=== PATIENT | female | born 1985 | race Caucasian/White ===

== ENCOUNTER 2017-01-02 07:40 | Day surgery (SDC) | payer OTHER ==
[2017-01-02] VITALS (15 sets, daily range): BP systolic 104–140; BP diastolic 54–90; PULSE 63–104; RESP 10–18; O2SAT 94–99
[~2017-01-02] VITALS: Ht 170.2 cm; Wt 55.8 kg
[~2017-01-02 07:40] MED LIST: ALPR0.5T PO; Clindamycin Inj 600 MG in IV Premix 1 EACH IV SCH; Lactated Ringer's 1,000 ML IV SCH; MIRT7.5T8 PO; VENL150C PO
[2017-01-02] MEDS ORDERED: Dexamethasone 4 mg/mL Inj ONE (07:41)
[2017-01-02] MEDS ORDERED: Rocuronium 10 mg/mL 5 mL Inj ONE (07:41)
[2017-01-02] MEDS ORDERED: Propofol 10,000 mCg/mL 20 mL Inj ONE (07:41)
[2017-01-02] MEDS ORDERED: fentaNYL-PF 50 mCg/mL 2 mL Inj ONE ×2 (07:41→14:52)
[2017-01-02] MEDS ORDERED: Neostigmine 1 mg/mL 10 mL Inj ONE (07:41)
[2017-01-02] MEDS ORDERED: Glycopyrrolate 0.2 MG/ML 1mL Inj ONE (07:41)
[2017-01-02] MEDS ORDERED: Ondansetron 2 mg/mL 2 mL Inj ONE (07:41)
[2017-01-02] MEDS ORDERED: Lidocaine PF 1% 30 mL Inj ONE (07:41)
[2017-01-02] MEDS ORDERED: Ketorolac 15 mg/mL Inj IVPUSH ONE (10:25)
[2017-01-02] MEDS ORDERED: HYDROcodone-APAP 5-325 mg Tablet PO PRN (10:25)
--- NOTE | 2017-01-02 10:31 | PCM.ORTHOP ---
Orthopedic Operative Report Date of Service: Jan 02, 2017 Pre Operative Diagnosis Left shoulder acromioclavicular joint arthritis Post Operative Diagnosis Same Procedure Left shoulder arthroscopy, distal clavicle excision Surgeon Surgeon: Aristeo Uribe MD Assistants:Paxton Chavez Indication for Procedure Left shoulder acromioclavicular joint arthritis Findings Severe acromioclavicular joint arthritis Details of Procedure RESEARCH GROUP DIRECTOR SURGEON: During the operation, the services of physician surgical training specialist were medically indicated and necessary to provide exposure of the operative site for the surgical procedure and to maintain the limb in a proper position to carry out the operation safely and efficiently. Without the qualified sales assistant being present, it would have extended the operative procedure and made the procedure technically more difficult to perform. INDICATIONS: The patient is a Jessica Crowe who is a 31-year-old female with pain with acromioclavicular joint arthritis refractory to steroid injection. The risks, benefits, and alternatives of surgery were discussed with the patient. The risks included but were not limited to infection, bleeding, damage to vessels and nerves, loss of motion, continued pain, complications due to anesthesia including myocardial infarction, stroke, , etc. The patient stated understanding of the nature of the surgical procedure and gave written and verbal consent to proceed. PROCEDURE: The patient was brought into the operating room and placed supine on the operating room table. A supraclavicular block was placed in the left shoulder for postoperative pain management, followed by the administration of general anesthesia. . The patient was then placed into the lateral decubitus position with the right side up. An axillary role was placed and the legs were padded as necessary to avoid pressure points. The patient was maintained in position with a beanbag evacuation device. A thorough examination of the left shoulder under anesthesia was performed. The patient had 150 degrees of forward elevation and 120 degrees of abduction. In 90 degrees of abduction there was 90 degrees of external rotation and 70 degrees of internal rotation. The shoulder was stable to load-shift testing. The left upper extremity was then prepped and draped in the usual fashion. The arm was suspended with a well-padded sleeve with eight/ten pounds of balanced suspension in the arthroscopic position. A standard posterior portal was made inferior and medial to the posterior corner of the acromion. The incision was made only through skin. The trocar was advanced through the soft tissue with a blunt-tipped obturator. This was inserted into the glenohumeral joint without difficulty. The 4 mm arthroscope was placed through the cannula and attached to the video monitor system. Inflow was achieved using the arthroscopic pump. The pressure was maintained at 35-40 mm of mercury throughout the entire procedure. Once the arthroscope confirmed visualization within the shoulder joint, it was advanced anteriorly into the rotator interval beneath the biceps tendon. A Wissinger walter was then used to create the anterior portal from inside-out. A second anterior stab wound incision was made only through skin and an anterior cannula was placed. A routine arthroscopic survey was begun. Survey: Anterior labral tear, intact rotator cuff, no biceps tendinitis The arm was then placed in the bursoscopy position. Norma procedure: Within the subacromial space there was no fraying on the undersurface of the coracoacromial ligament consistent with impingement. Next, the AC joint capsule was opened. There was inferior spurring as well as synovitis and arthritic changes at the AC joint and a decision was made to proceed with distal clavicle excision. Using a motorized bur working initially from posteriorly and then anteriorly, the outer 10 mm of the distal clavicle were excised. The arthroscope was then positioned anteriorly within the AC resection site confirming an excellent level of resection. The arm was placed through a range of motion and the rotator cuff and humeral head moved well as a unit. There was no further evidence of impingement. The subacromial space was irrigated with an additional liter of lactated Ringer s solution and excess fluid was drained. The arthroscopic portals were closed with #4-0 Nylon and Steri-Strips. A dry sterile dressing was applied, followed by a neutral rotation sling. The patient was awakened in the operating room and transported to the recovery room in satisfactory condition. The patient appeared to tolerate the procedure well. There were no complications noted. Nonweightbearing to affected upper extremity. Please leave sling on when you are in public, you may take off your sling at home and when asleep. You may remove sling 3 times a day to move the elbow wrist and fingers. You may start gentle ROM for your shoulder. Please keep the affected extremity elevated when possible. You may use ice and/or heat as needed for comfort. Follow-up in 2 weeks with me with 2-view xrays and for suture removal and Steri -Strip application, start physical therapy phase 1. Follow-up with me at 6 weeks, with progression of physical therapy as per my protocol (please ask me for protocol if needed). Follow-up with me before full release at 6-12 weeks postop. Grafts, Implants: None Complications There were no periprocedural complications identified. Condition Stable Anesthetic Administered: GA Catheters: None Output, Estimated Blood Loss: 5 Blood Admin during surgery: No Surgical Cast or Splint: Other Surgical Specimen Removed: No Specimen sent to Pathology: No copies to: Aristeo Uribe MD, Christopher L MD Jan 02, 2017 10:31
[2017-01-02] MEDS ORDERED: Lactated Ringer's 500 ML IV PRN (10:34)
[2017-01-02] MEDS ORDERED: Lactated Ringer's 1,000 ML IV SCH (10:34)
--- NOTE | 2017-01-02 10:34 | PCM.HPANE ---
Patient Data Date of Service: Jan 02, 2017 (1030) Surgeon Admitting Provider: Attending Provider:Aristeo Uribe MD Primary Care Physician:Genesis Cedeño MD Other Provider:Erasmo Durant Anesthesia Reason for Visit Left Ac Joint Arthritis Ht/WT & BMI Height (Feet): 5 Height (Inches): 7.00 Weight (Kilograms): 55.792 Body Mass Index 19.00 Allergies Coded Allergies: Penicillins (Verified Allergy, Severe, Rash,hives, 12/27/16) codeine (Verified Allergy, Severe, Rash, OK WITH MORPHINE, TROUBLE BREATHING, 12/27/16) iodine (Verified Allergy, Severe, Rash, 12/27/16) latex (Verified Allergy, Severe, Rash, 12/27/16) tramadol (Verified Allergy, Severe, Rash,diarrhea, 12/27/16) Past Anesthesia History Anesthesia History: Denies:: Abnormal Airway, Anesthesia Reactions, Difficult Intubation, Fam Anesthesia Reaction, Fam Malignant Hypertherm, Malignant Hyperthermia Diabetes History Hx Diabetes?: No MRSA MRSA: No Medications Home Meds Incl Beta Jesse: No Reported Medications Alprazolam (Xanax)0.5 Mg Tablet0.5 Mg PO TID PRN For Anxiety Ref 0 12/27/16 Mirtazapine 7.5 Mg Tablet7.5 Mg PO HS Ref 0 12/27/16 Venlafaxine ER (Effexor XR)150 Mg [id number] Mg PO DAILY Ref 0 12/27/16 Discontinued Reported Medications Hydrocod/APAP-Expunged, Do Not Renew! (VICODIN 5/500-Expunged Drug, Do Not Renew )1 Each Tablet1 Each PO 2D 01/09/13 Bupropion-Expunged Drug, Do Not Renew! 100 Mg Tablet1 Tab PO BID #60 TAB TAKE WITH FOOD 01/09/13 Sennosides/Docusate Sod-Expunged Drug, Do Not (Stool Softener-Expunged Drug, Do Not Renew!)1 Each Tablet1 Each PO DAILY 02/20/12 Vit/Fe Fumarate/Fa-Expunged Drug, Do (-Expunged Drug, Do Not Renew!)1 Tab Tablet1 Tab PO DAILY Ref 0 03/18/09 Discontinued Scripts Hydrocodone-Acetaminophen 5-325 mg 1 Each Tablet1 Tablet PO Q4H PRN For Pain # 20 TABLET Prov:Boerne,Ash O MD 05/20/16 Naproxen (Naprosyn)500 Mg [id number] Mg PO BID PRN For Pain #20 TABLET Ref 0 Prov:Aristeo Alvarez MD 04/02/16 Metronidazole (Flagyl)500 Mg [id number] Mg PO Q8H #20 TABLET Prov:Aristeo Alvarez MD 04/02/16 Doxycycline Hyclate 100 Mg [id number] Mg PO BID #20 TABLET Prov:Aristeo Alvarez MD 04/02/16 Hydrocodone-Acetaminophen 5-325 mg 1 Each Tablet1 Tablet PO QID PRN For Pain # 12 TABLET Ref 0 Prov:Aristeo Danielle 08/20/15 History History of ENT Problems?: Yes HEENT History: Positive for:: Sinus Problem (Hx of Sinusitis/ENVIRONMENTAL ALLERGIES) Denies:: Abnormal Airway Cataracts Difficult Intubation Dysphagia Hearing Problem Hx of Heart Problems?: No Cardiovascular History: Denies:: Cardiac Surgery Chest Pain Congestive Heart Failure Edema Heart Murmur Hypertension Irregular Heartbeat Pacemaker Thrombophlebitis Hx of Respiratory Problem?: No Respiratory History: Positive for:: Asthma (in winter, cold air) Denies:: COPD Chest Surgery (HX OF SMALL SPONTANEOUS PNEUMO 06/2014-RESOLVED W/O CT) Dyspnea (WALKER-SIMILAR SX 05/2016 W/ PNEUMO IN 2013, BUT CXR CLEAR) Emphysema Hemoptysis Pneumonia Tuberculosis Use of C-PAP Machine (SNORES) Hx Neurologic Problems?: Yes Neurological History: Positive for:: Headaches Seizures (fever-Induced, many years ago) Denies:: Alzheimer's Disease CVA Dementia Dizziness Parkinson's Disease Hx of GI Problems?: Yes Gastrointestinal History: Positive for:: Heartburn Denies:: Diverticulitis Gastroesphageal Reflux Gastrointestinal Bleeding Hepatitis Hiatal Hernia Rectal Bleeding Other GI Pertinent History: C/OF INTERMITTANT NAUSEA Hx of Problems?: Yes Genitourinary History: Positive for:: Urinary Tract Infection (HX OF W/ DYSURIA) Denies:: HX of Hemodialysis Kidney Stones HX of Peritoneal Dialysis: No Female Hx: Positive for:: Problems with Breasts? (inverted nipple on R) Denies:: Currently Endometriosis Pelvic Inflammatory Skin History: Denies:: History Skin Disorders? Pressure Ulcers Hx Musculoskeletal Problems?: Yes Musculoskeletal History: Positive for:: Back Injury (C/OF LUMBAR STRAIN) Musculoskeletal Trauma (HX FX LT ARM 1991, KNEE INJURY) Osteoarthritis (LT AC JOINT ARTHRITIS=CURRENT PROBLEM) Denies:: Joint Replacement Hx of Psycho/Social Problems?: Yes Psycho Social History: Positive for:: Anxiety Hx Depression Denies:: Bipolar Disorder Suicide Attempt Hx Surgeries?: Yes () Hx Any Other Health Problems?: Yes Other History: Denies:: Cancer Endocrine Disease Hospitalization Thyroid Disease History Blood Transfusions: Denies:: Blood Transfuse Reaction Blood Transfusions Hx Diabetes: No Hx Alcohol Use: NoHx Substance Use: No Smoking Status: Never Smoker Have You Smoked inLast 12 mo: No Stop/Bang S-Snoring: Do You Snore Loudly: Yes T-Tired: feel tired, fatigued: Yes O-Obsered: Observed not breath: No P-Blood Pressure: treated: No B- Body Mass Index > 35 kg/m2: No A- Age over 50: No N- Neck Large Circumference: No G- Gender Male: No LEAH Total Score: 2 LEAH Risk Assessment: Low Risk, <3 Yes Risk Assessment Category Category 1A: Patient has history of documented sleep apnea, and HAS NOT received any narcotic, sedative or anesthesia administration during this stay. Category 1B: Patient has history of documented sleep apnea, and HAS received any narcotic , sedative or anesthesia administration during this stay Category 2: Patient has SUSPECTED Obstructive Sleep Apnea, and HAS received any narcotic , sedative or anesthesia administration during this stay. Category 3: Patient has SUSPECTED Obstructive Sleep Apnea and HAS NOT received narcotic, sedative or anesthesia administration during this stay. Category 4: Outpatient in Procedural Areas with known sleep apnea or who screen positive for High Risk via the STOP/BANG questionnaire. Exam Exam Vital Signs Vital Signs Date Time Temp Pulse Resp B/P Pulse Ox O2 Delivery O2 Flow Rate FiO2 01/02/17 08:39 66 16 109/62 98 General Appearance: Alert, Oriented X3, Cooperative HEENT/AIRWAY: MP 2 Lungs: Clear to Auscultation Heart: Exam Unremarkable Plan Impression Patient chart reviewed, patient interviewed and anesthestic plan with risks, benefits, and alternatives discussed, and informed consent obtained. NPO Status: 01/01 at 1900 ASA Physical Status: ASA2 Mod Systemic Disease Anesthetic Plan: GA Bene/Risks/Altern/Consents: Yes HP Complete Prior to Induction: Yes Prakash Aparicio MD Jan 02, 2017 10:34
[2017-01-02] MEDS ORDERED: Ondansetron 2 mg/mL 2 mL Inj IVPUSH PRN (10:35)
[2017-01-02] MEDS ORDERED: EPHEDrine Sulfate 50 mg/mL Inj IVPUSH PRN (10:35)
[2017-01-02] MEDS ORDERED: Dexamethasone 4 mg/mL Inj IVPUSH PRN (10:35)
[2017-01-02] MEDS ORDERED: MetoCLOpramide 5 mg/mL 2 mL Inj IVPUSH PRN (10:35)
[2017-01-02] MEDS ORDERED: Phenylephrine 10,000 mCg/mL Inj IVPUSH PRN (10:35)
[2017-01-02] MEDS ORDERED: Ropivacaine-PF 0.5% 30 mL Inj INJ ONE (12:02)
--- NOTE | 2017-01-02 12:17 | PCM.ANEP1 ---
Post Anesthesia Phase 1 PACU Phase 1 Assessment Date of Service: Jan 02, 2017 (1030) Vital Signs 36.6, 125/77, 108, 10, 98% Vital Signs Date Time Temp Pulse Resp B/P Pulse Ox O2 Delivery O2 Flow Rate FiO2 01/02/17 08:39 66 16 109/62 98 Anesthetic Administered: GA OHARA's with Equal Strength: No Pain: No Nausea or Vomiting: No Oxygen Delivery: Room Air Lungs: Clear to Auscultation Dermatome Level: Full Sensation (BLOCK WORKING WELL) Summary UNEVENTFUL Prakash Dolan MD Jan 02, 2017 12:17
--- NOTE | 2017-01-02 12:17 | PCM.ANEP2 ---
Post Anesthesia Evaluation ASA/CMS Post Anesthesia VS in Patient's Normal Range?: Yes Resp Stable; Airway Patent?: Yes CV Function & Hydration Stable: Yes Mental Status Recovered?: Yes Pain control Satisfactory?: Yes N/V Control Satisfactory?: Yes Prakash Aparicio MD Jan 02, 2017 12:17
[2017-01-02] MEDS: fentaNYL-PF 50 mCg/mL 2 mL Inj IVPUSH PRN ×3 (12:31→14:58)
[2017-01-02] MEDS: HYDROmorphone 1 mg/mL Inj IVPUSH PRN ×3 (13:12→16:40)
== END 2017-01-02 23:59 | disposition home or self-care (01) ==
LOC: SAS 07:40
PROVIDERS: ATTEND Orthopaedic Surgery
DX: M19.012 Primary osteoarthritis, left shoulder (principal); J45.909 Unspecified asthma, uncomplicated; R51 Headache; R12 Heartburn; F41.9 Anxiety disorder, unspecified; Z79.899 Other long term (current) drug therapy

== ENCOUNTER 2017-02-04 07:40 | Emergency (ER) | payer OTHER ==
[~2017-02-04] VITALS: Ht 170.2 cm; Wt 55.9 kg
[~2017-02-04 07:40] MED LIST changes: -Clindamycin Inj 600 MG in IV Premix 1 EACH IV SCH; -Lactated Ringer's 1,000 ML IV SCH
[2017-02-04 07:47] VITALS: BP 131/54; PULSE 69; RESP 18; O2SAT 100
--- NOTE | 2017-02-04 07:56 | ED.REPORT ---
HPI-General Illness Date of Service February 04, 2017 ED Provider: Fanny Riddle MD The patient is a 31 year old female who presents to the ED due to left chest and shoulder pain radiating to the right shoulder and left arm onset yesterday. She had a left shoulder arthroscopy on 01/02/[address] Stroud. She denies any injury or muscle exacerbation to cause her symptoms. It has been 5 days since she stopped wearing her sling. She took 800mg Ibuprofen and 3 extra strength Tylenol with no relief. Nursing Notes Stated Complaint: SHOULDER/CHEST PAIN Chief Complaint: Extremity Trauma Nursing Notes Reviewed: Yes Allergies: Coded Allergies: Penicillins (Verified Allergy, Severe, Rash,hives, 12/27/16) codeine (Verified Allergy, Severe, Rash, OK WITH MORPHINE, TROUBLE BREATHING, 12/27/16) iodine (Verified Allergy, Severe, Rash, 12/27/16) latex (Verified Allergy, Severe, Rash, 12/27/16) tramadol (Verified Allergy, Severe, Rash,diarrhea, 12/27/16) ketorolac (Verified Allergy, Intermediate, Nausea,Vomiting,Diarrhea, ) Scheduled Mirtazapine (Mirtazapine) 7.5 Mg Tablet 7.5 MG PO HS Venlafaxine ER (Effexor XR) 150 Mg Capsule 150 MG PO DAILY Scheduled PRN Alprazolam (Xanax) 0.5 Mg Tablet 0.5 MG PO TID PRN PRN For Anxiety oxyCODONE-Acetaminophen 5-325 mg (oxyCODONE-Acetaminophen 5-325 mg) 1 Each Tablet 1-2 TAB PO Q6H PRN PRN For Pain General Time Seen by MD: 07:54 Chief Complaint Other (left shoulder pain) Hx Obtained From: Patient Arrived By: Walk-in Onset Occurred: Yesterday Symptom Duration: Since onset Location: : Chest: Shoulder left Quality: Painful Radiation: : Arm left Severity: Current: Moderate Recent Healthcare: Recent doctor visit, Previous surgery Similar Sx Previous: Yes Past Medical History Past Medical History Hypotension Spontaneous PTX 07/06 depression PTSD Past Surgical History Reports: Family History Noncontributory Smoking History Never Smoker Social History Alcohol Use: Denies alcohol use Drug Use: Denies drug use Other Social History: Good social support, , Lives with children, Local resident Ambulatory Status Wheelchair Review of Systems Full Review of Systems Cardiovascular: Reports: Chest pain Musculoskeletal: Reports: Joint pain (left shoulder ) Complete sys rev & neg: except as marked. Physical Exam Vital Signs Vital Signs Date Time Temp Pulse Resp B/P Pulse Ox O2 Delivery O2 Flow Rate FiO2 02/04/17 10:00 74 16 112/69 99 02/04/17 07:47 36.3 69 18 131/54 100 Room Air Initial VS: Reviewed Head / Eyes: Atraumatic, Normocephalic ENT: Mucous membranes moist Cardiovascular: Regular rate & rhythm, Heart sounds normal, Intact distal pulses Abdomen / GI: Soft, Non-tender, No guarding, No rebound, No distention Skin: Warm, Dry Neurologic: Alert, Oriented General/Constitutional: Awake, Alert, Cooperative Respiratory / Chest: Breath sounds = bilat On bedside ultrasound, pleural sliding easily seen in Right upper lobe but not definitive in left upper lobe Upper Extremities Upper Extremity / MS: Neurologic intact left shoulder tender at the acromial clavicular joint consistent with surgery significant trapezius spasm no warmth redness or sign of infection neuro intact along left arm Interpretation & Diagnostics ECG Interpretation Time: 08:47 Interpreted by: ED physician Normal ECG Interpretation: Normal ECG w/ rate of... (65) X-Ray Chest Interpretation Chest Xray Interpretation: IMPRESSION: 1. No acute cardiopulmonary disease. Dictated by: Mikael Valentine M.D. on 02/04/2017 at 8:50 Approved by: Mikael Valentine M.D. on 02/04/2017 at 8:52 View: Portable Interpretation / Wet Read by: Interpret - Radiologist Re-Eval/Medical Decision Time of Eval: 08:11 Re-Evaluation/Progress Note: US performed. Counseled Regarding: Diagnosis, Lab results, Need for follow-up, When/why to return to ED Discharge & Departure Primary Impression: Shoulder pain Laterality: left Chronicity: unspecified Qualified Code: M25.512 - Pain in left shoulder Disposition: Home Discharge Condition All VS Reviewed: Yes Condition: Stable Additional Instructions: Your chest x-ray is completely normal, there is no pneumothorax. The surgical site looks good. The best plan of treatment is simply time and ice. Start using your sling again. Sometimes a scarf can prove to be more comfortable then a sling, as well as fashionable;) I will sending you home with pain medication, Percocet, to use sparingly for the next 1-2 days. Be careful with your narcotic usage. Follow up with your primary care physician as needed. Return to the Emergency Department for any new or worsening symptoms. I hope you feel better soon. Happy Belated Mother's Day! Referrals: Genesis Cedeño MD (PCP) Declanibe Attestation Portion of this note were transcribed by Kym Lainez. I, Dr. More Riddle, personally performed the history, physical exam, and medical decision-making: I reviewed and confirmed the accuracy for the information in the transcribed note. Signed by: nolvia Farley, 02/04/17 1000 copies to: Genesis Cedeño MD, Shawna L MD February 04, 2017 07:56 Kym Lainez February 04, 2017 08:12
--- NOTE | 2017-02-04 08:53 | DRSVH ---
PROCEDURE: X-RAY CHEST, TWO VIEWS ([id number]) INDICATIONS: chest pain, ? Left pneumothorax TECHNIQUE: 2 views of the chest were acquired. COMPARISON: [facility], CR, XR CHEST 2VW, 09/02/2016, 15:37. FINDINGS: Surgical changes and devices: None. Lungs and pleura: No pleural effusions or pneumothorax. Lungs are clear. Mediastinum: Mediastinal contours are normal. Heart size is normal. Bones and chest wall: No suspicious bony abnormalities. Soft tissues appear unremarkable. IMPRESSION: 1. No acute cardiopulmonary disease. Dictated by: Mikael Valentine M.D. on 02/04/2017 at 8:50 Approved by: Miakel Valentine M.D. on 02/04/2017 at 8:52
[2017-02-04 10:00] VITALS: BP 112/69; PULSE 74; RESP 16; O2SAT 99
[2017-02-04] MEDS ORDERED: OXYC1TAB24 PO (10:07)
[2017-02-04 10:22] VITALS: BP 112/69; PULSE 74; RESP 16; O2SAT 99
== END 2017-02-04 10:23 | disposition home or self-care (01) ==
LOC: SED 07:40
DX: M25.512 Pain in left shoulder (principal); R07.9 Chest pain, unspecified; F43.10 Post-traumatic stress disorder, unspecified; Z98.890 Other specified postprocedural states; Z91.040 Latex allergy status; Z88.0 Allergy status to penicillin; Z88.5 Allergy status to narcotic agent; Z88.8 Allergy status to other drugs, medicaments and biological substances